=== PATIENT | female | born 1970 | race Caucasian/White ===

== ENCOUNTER → 2021-06-26 15:09 | Outpatient (BNVA) | payer OTHER, SELFPAY | PROVIDERS: PCP Internal Medicine; Visit Provider Internal Medicine ==

== ENCOUNTER → 2021-07-18 12:57 | Outpatient (BNVA) | payer OTHER, SELFPAY | PROVIDERS: PCP Internal Medicine; Visit Provider Nurse Practitioner Family | DX: M47.812 Spondylosis without myelopathy or radiculopathy, cervical region (principal); M43.06 Spondylolysis, lumbar region; E20.9 Hypoparathyroidism, unspecified; M79.18 Myalgia, other site; S30.860A Insect bite (nonvenomous) of lower back and pelvis, initial encounter; W57.XXXA Bitten or stung by nonvenomous insect and other nonvenomous arthropods, initial encounter; Y93.9 Activity, unspecified; Y92.9 Unspecified place or not applicable; Y99.9 Unspecified external cause status | CPT/HCPCS: 99202 ==

== ENCOUNTER 2022-02-15 20:37 | Emergency (ER) | payer OTHER, SELFPAY ==
[2022-02-15 20:40] VITALS: BP 175/110; PULSE 86; RESP 18; TEMP 37.1; O2SAT 100; BMI 32.8
--- NOTE | 2022-02-15 21:14 | ED_ITS ---
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 Patient reports she was at a restaurant eating and there was a sauce on her steak that she believes contains June. Since then she has had this sensation in her throat and down into her upper abdomen. She reports some throat tightness also. Denies skin rash, vomiting, diarrhea, abdominal cramping, cough or difficulty breathing. Patient also reports some hand shaking which she gets when her calcium and magnesium are low. Blood pressure elevated in triage. Asymptomatic. Does not take medication for bp Related Data Home Medications Medication Instructions Recorded Confirmed cholecalciferol (vitamin D3) 250 250 mcg PO DAILY 07/18/21 mcg (10,000 unit) capsule gabapentin 100 mg capsule 200 mg PO TID 07/18/21 hydrocodone 5 mg-acetaminophen 325 1 tab PO Q6H PRN 07/18/21 mg tablet levothyroxine 175 mcg tablet 175 mcg PO DAILY 07/18/21 (Synthroid) magnesium 250 mg tablet 250 mg PO DAILY 07/18/21 metaxalone 400 mg tablet 800 mg PO TID 07/18/21 parathyroid hormone 100 mcg/dose 50 mcg subcut DAILY 07/18/21 subcutaneous cartridge (Natpara) tizanidine 2 mg tablet 2 mg PO Q8H PRN muscle spasm 07/18/21 vitamin B complex 1 cap PO DAILY 07/18/21 vitamin K2 100 mcg capsule 100 mcg PO DAILY 07/18/21 zolmitriptan 5 mg nasal spray 1 spray intranasal Q2H PRN 07/18/21 (Zomig) Previous Rx's Medication Instructions Recorded doxycycline hyclate 100 mg capsule 200 mg PO DAILY tick bite 1 day #2 07/18/21 caps Allergies Allergy/AdvReac Type Severity Reaction Status Date / Time insect venom [INSECT BITES] Allergy Intermediate ITCHING Unverified 01/14/20 17:29 prochlorperazine Allergy Unknown UNKNOWN Unverified 01/14/20 17:29 [From COMPAZINE] topiramate [From TOPAMAX] Allergy Unknown UNKNOWN Unverified 01/14/20 17:29 Review of Systems Review of Systems: Yes all other systems are reviewed and are negative Constitutional: Constitutional: Reports no additional constitutional complaints, Denies body ache(s), Denies chills, Denies fever(s), Denies headache(s) and Denies weakness Eyes: Eyes: Reports no additional eye complaints and Denies change in vision ENT: Reports system reviewed and no additional complaints, except as documented, Denies dizziness, Denies headache(s), Denies nasal congestion, Denies nasal discharge, Denies neck pain and Reports sore throat Cardiovascular: Cardiovascular: Reports no additional cardiovascular complaints, Denies chest pain, Denies leg edema and Denies dyspnea Respiratory: Respiratory: Reports no additional respiratory complaints, Denies cough and Denies dyspnea Gastrointestinal: Gastrointestinal: Reports no additional gastrointestinal complaints, Reports abdominal pain, Denies diarrhea, Denies nausea and Denies vomiting Genitourinary: Genitourinary: Reports no additional female genitourinary complaints and Denies urinary incontinence Musculoskeletal: Musculoskeletal: Reports no additional musculoskeletal complaints, Denies back pain, Denies arthralgias, Denies joint swelling, Denies neck pain, Denies numbness and Denies tingling Integumentary/Breasts: Skin/Breast: Reports system reviewed and no additional complaints, except as docu and Denies rash Neurologic: Reports system reviewed and no additional complaints, except as documented, Denies dizziness, Denies headache(s), Denies numbness, Denies tingling and Denies weakness [facility] Past Medical History Attestation statement: The following information was validated with the patient. Source: old records reviewed and nursing notes reviewed Medical History Abdominal pain, epigastric Genitofemoral neuralgia of right side History of papillary adenocarcinoma of thyroid Hypoparathyroidism Hypothyroidism Incisional hernia Migraine with aura and without status migrainosus Skin laxity Surgical History Gastric bypass status for obesity H/O laparoscopy H/O thyroidectomy H/O: hysterectomy History of History of esophagogastroduodenoscopy (EGD) Status post panniculectomy Family History Family History Mother Celiac disease Hypertension Diabetes Father Hypertension Parkinson disease Social History Social History Alcohol intake: never Patient Tobacco Use Status: Never used Tobacco Advance Directives: No Advance Directives Information Provided: Yes Physical Exam ED Vital Signs: Vital Signs - 24 hr 02/15/22 20:40 02/15/22 21:30 Temperature 98.7 F Pulse Rate 86 Respiratory Rate 18 Blood Pressure 175/110 H 147/93 H Pulse Oximetry 100 Oxygen Delivery Method Room Air BMI result Body Mass Index 32.8 Const General: cooperative, healthy appearing, comfortable and no acute distress Orientation/consciousness: patient oriented x3 Limitations: no limitations HENMT Head: Yes normal to inspection Ears: hearing grossly normal bilaterally Throat: Yes posterior oropharynx normal, Yes tonsils normal and Yes uvula midline Eyes General: appearance normal, both eyes and all related structures Neck Other: no stridor Neck: Yes normal visual inspection and Yes full ROM Chest Chest palpation & inspection: normal inspection of the chest Resp Effort & Inspection: normal respiratory effort Auscultation: clear to auscultation bilaterally Cardio Rate: regular rate Rhythm: regular rhythm Peripheral pulses: Peripheral pulses 2+ throughout GI Inspection: Yes normal to inspection Palpation (GI): Soft to palpation and nontender General: Yes no CVA tenderness Back/Spine/Pelvis Back: no CVA tenderness Thoracic/Lumbar Spine: thoracic and lumbar spine normal to inspection Skin General skin exam: no rashes or lesions noted Neuro General: patient oriented x3 and moves all extremities Cognition (Neuro): normal cognition Gait exam (Neuro): Normal gait present Extrem General: Yes normal to inspection Course Course Course Narrative: Labs are all normal. Patient tells me her throat feels improved. She still does have some slight upper abdominal discomfort but overall is feeling better. Plan for discharge home. Reviewed worrisome signs and symptoms of when to return to the emergency room. Comfortable discharge home. Blood pressure improved without intervention MDM - Allergic Reaction MDM Narrative Medical decision making narrative: 51-year-old female here with complaints sore throat described as burning and tightness and upper abdominal burning after cilantro this afternoon No airway involvement or angioedema Lungs are clear Vitals are stable Took 50mg PO benadryl prior to arrival Will give maalox/lidocaine Patient concerned her calcium/magnesium are low d/t ?stressful event and has underlying hypoparathyroidism. Will check labs including calcium/magnesium. Asymptomatic HTN. Will check manual BP Medical Records Attestation: I reviewed the patient's medical records. Lab Data Attestation: I reviewed the patient's lab results. Result diagrams: 02/15/22 21:19 02/15/22 21:19 Labs: Lab Results 02/15/22 02/15/22 02/15/22 Range/Units 21:19 21:19 21:19 WBC 8.2 (4.8-10.8) X10*3/uL RBC 4.56 (4.20-5.50) X10*6/uL Hgb 14.1 (12.0-16.0) g/dl Hct 42.0 (37.0-47.0) % MCV 92.1 (80.0-98.0) fL MCH 30.9 (27.0-33.0) pg MCHC 33.6 (31.0-35.0) g/dl RDW 11.9 (11.0-16.0) % Plt Count 270 (160-400) X10*3/uL MPV 10.5 (9.4-12.3) fL Absolute Nucleated RBC 0.000 (0.0-0.012) X10*3/uL Nucleated RBC % (auto) 0.0 (0.0-0.2) /100WBC Sodium 141 (135-145) mmol/L Potassium 4.5 (3.3-5.1) mmol/L Chloride 103 (96-108) mmol/L Carbon Dioxide 26 (22-29) mmol/L Anion Gap 17 (12-20) BUN 18 H (9-16) mg/dL Creatinine 0.74 (0.5-1.4) mg/dL Estim Creat Clear Calc 93.3 Estimated GFR > 60 Random Glucose 94 (60-115) mg/dL Calcium 9.4 9.7 (8.4-10.2) mg/dL Magnesium 2.0 (1.6-2.6) mg/dL Total Bilirubin 0.4 (0.0-1.0) mg/dL Direct Bilirubin < 0.2 (0.0-0.5) mg/dL AST 24 (5-31) U/L ALT 23 (0-31) U/L Alkaline Phosphatase 77 (39-117) U/L Total Protein 7.4 (6.5-8.0) g/dL Albumin 4.8 (3.5-5.0) g/dL Discharge Plan Discharge Clinical Impression: Allergic reaction Patient Disposition: Home, Self-Care Instructions: General Allergic Reaction (ED) Additional Instructions: Your calcium is 9.7, magnesium is 2.0, albumin 4.8 you may take Maalox and omeprazole for the next few days Prescriptions: No Action hydrocodone-acetaminophen 5-325 mg tablet 1 tab PO Q6H PRN Natpara 100 mcg/dose cartridge 50 mcg subcut DAILY Rx Instructions: inject into thigh; alternate sites/do not use the same thigh for 2 consecutive days tizanidine 2 mg tablet 2 mg PO Q8H PRN (Reason: muscle spasm) gabapentin 100 mg capsule 200 mg PO TID levothyroxine [Synthroid] 175 mcg tablet 175 mcg PO DAILY magnesium 250 mg tablet 250 mg PO DAILY cholecalciferol (vitamin D3) 250 mcg (10,000 unit) capsule 250 mcg PO DAILY vitamin B complex Capsule 1 cap PO DAILY vitamin K2 100 mcg capsule 100 mcg PO DAILY metaxalone 400 mg tablet 800 mg PO TID zolmitriptan [Zomig] 5 mg spray,non-aerosol 1 spray intranasal Q2H PRN Rx Instructions: administer into one nostril (only); alternate nostrils; do not exceed 10 mg /24 hrs doxycycline hyclate 100 mg capsule 200 mg PO DAILY 1 Days Qty: 2 0RF Rx Instructions: Do not take magnesium while taking this. Referrals: Swati Aquino MD [Primary Care Provider] - 1 week (only as needed) Interventions: ED Discharge Assessment Last Done: 02/15/22 22:52 Discharge Date/Time: 02/15/22 22:54
[2022-02-15 21:25] LABS: Hemoglobin 14.1 g/dl (12.0-16.0); Mean Corpuscular HGB Conc 33.6 g/dl (31.0-35.0); Mean Corpuscular Hemoglobin 30.9 pg (27.0-33.0); Mean Corpuscular Volume 92.1 fL (80.0-98.0); Mean Platelet Volume 10.5 fL (9.4-12.3); Platelet Count 270 X10*3/uL (160-400); Red Blood Count 4.56 X10*6/uL (4.20-5.50); Red Cell Distribution Width 11.9 % (11.0-16.0); White Blood Count 8.2 X10*3/uL (4.8-10.8)
[2022-02-15 21:30] VITALS: BP 147/93
[2022-02-15] MEDS: Magnesium Hydrox/Alum Hydrox 30 ML ORAL.SUSP PO (21:36)
[2022-02-15] MEDS: Lidocaine HCl Viscous 2 % 15 ML SOLUTION MUCOUS MEM (21:36)
[2022-02-15 21:54] LABS: Anion Gap 17 (12-20); Blood Urea Nitrogen 18 mg/dL (9-16); Calcium 9.4 mg/dL (8.4-10.2); Carbon Dioxide 26 mmol/L (22-29); Chloride 103 mmol/L (96-108); Creatinine Clr Calc Pharmacy 93.3; Estimated Glomerular Filt Rate > 60; Glucose Random 94 mg/dL (60-115); Potassium 4.5 mmol/L (3.3-5.1); Sodium 141 mmol/L (135-145)
[2022-02-15 22:01] LABS: Alanine Aminotransferase 23 U/L (0-31); Albumin Level 4.8 g/dL (3.5-5.0); Alkaline Phosphatase 77 U/L (39-117); Aspartate Amino Transferase 24 U/L (5-31); Bilirubin Direct < 0.2 mg/dL (0.0-0.5); Bilirubin Total 0.4 mg/dL (0.0-1.0); Calcium 9.7 mg/dL (8.4-10.2); Total Protein 7.4 g/dL (6.5-8.0)
== END 2022-02-15 22:54 | disposition home or self-care (01) ==
PROVIDERS: Emergency Medicine; Nurse Practitioner Family; Emergency Provider Emergency Medicine; PCP Internal Medicine
DX: L50.0 Allergic urticaria (principal); Z79.899 Other long term (current) drug therapy
CPT/HCPCS: 36415; 80048; 80076; 82310; 83735; 85027; 99282; 99283

== ENCOUNTER 2022-03-16 08:33 | Emergency (ER) | payer OTHER, SELFPAY ==
--- NOTE | ~2022-03-16 | XR_ITS ---
EXAMINATION: XR CHEST CLINICAL INFORMATION: Shortness of breath COMPARISON: 04/12/2019 TECHNIQUE: Frontal view of the chest was obtained. FINDINGS: Normal symmetric lung volumes. No parenchymal consolidation. No pleural effusion. No pneumothorax. Cardiomediastinal silhouette and pulmonary vascularity are within normal limits. No acute osseous abnormalities. XR/XR chest 1V IMPRESSION: Clear lungs
--- NOTE | ~2022-03-16 | CT_ITS ---
EXAMINATION: CT ANGIOGRAM OF THE CHEST WITH CONTRAST (CT PULMONARY ANGIOGRAM FOR PE) CT ABDOMEN/PELVIS WITH CONTRAST CLINICAL INFORMATION: Reason for Exam shortness of breath . 4 days postop status post hysterectomy (resection of the remaining cervix) and bilateral salpingo-oophorectomy. COMPARISON: None TECHNIQUE: Prior to contrast administration, noncontrast localization images were obtained. Subsequently, multidetector volumetric imaging was performed from the thoracic inlet through the pubic symphysis following the administration of 80 mL Omnipaque 350 intravenous contrast. Postcontrast images of the chest were acquired during the pulmonary angiographic phase, while imaging through the abdomen and pelvis was performed during the portal venous phase. No contrast reaction reported Sagittal, coronal, and MIP oblique sagittal reformatted images were obtained on the CT workstation, uploaded to PACS, and reviewed. This CT examination was performed using dose optimization techniques as appropriate, variously including the following: *Automated exposure control *Adjustment of mA and/or kV according to patient size (this includes techniques or standardized protocols for targeted exams where dose is matched to indication/reason for exam; i.e. extremities or head) *Use of iterative reconstruction technique Total exam dose-length product 1033 mGy-cm FINDINGS: QUALITY OF STUDY/CONTRAST BOLUS: Satisfactory. PULMONARY ARTERIES: No central or segmental pulmonary emboli. THORACIC AORTA: No aneurysm or dissection. LUNG: No focal consolidation, nodules or masses. PLEURA: No pleural effusion or pneumothorax. MEDIASTINUM: Mild cardiac megaly. No pericardial effusion. No hilar or mediastinal lymphadenopathy. No evidence of septal bowing or right heart strain. No reflux of contrast into the hepatic veins to suggest elevated right heart pressures. CHEST WALL/AXILLA: No axillary or internal mammary lymphadenopathy. HEPATOBILIARY: Liver normal in size, contour and morphology. No suspicious lesions. No intra or extrahepatic biliary dilation. Cholecystectomy. PANCREAS: Unremarkable. SPLEEN: Unremarkable. ADRENAL GLANDS: Unremarkable. morphology demonstrating symmetric enhancement. No suspicious renal cysts or masses. No hydronephrosis or perinephric abnormality.. GASTROINTESTINAL TRACT: Partha-en-Y gastrojejunostomy. No intestinal obstruction or inflammation. Normal appendix. PELVIC VISCERA: Hysterectomy and bilateral salpingo-oophorectomy. There is a nonspecific more rounded structure in the right perirectal fat measuring 1.5 cm which could represent hemorrhage as well. Trace extraperitoneal gas along the right lateral bladder. LYMPH NODES: No lymphadenopathy. PERITONEUM/BODY WALL: There is presumptive hematoma within the pelvis overlying the vaginal cuff measuring 10.2 x 4.7 x 7.2 cm. Stranding present within the right lower quadrant subcutaneous fat. VASCULAR STRUCTURES: Unremarkable. OSSEOUS STRUCTURES: No acute or suspicious osseous abnormalities. CT/CT angio chest PE protocol IMPRESSION: * No pulmonary embolism. * No acute pulmonary parenchymal abnormalities. * Hysterectomy and bilateral oophorectomy. * There is a 10.2 x 4.7 x 7.2 cm hematoma within the pelvis overlying the vaginal cuff. The acuity of this finding is unclear. Correlate with hemodynamic status with potential reimaging in several hours to ascertain as to whether the hematoma is increased in size, or sooner if the patient is clinically stable. VTE: negative This result was discussed with Marylou Trent NP at 03/16/2022 12:02 PM and it was ascertained that the content and urgency of the report was understood at the time of direct communication.
--- NOTE | 2022-03-16 08:42 | ED_ITS ---
HPI - Dizziness General Chief Complaint: General Medical Stated Complaint: DIZZY Time Seen by Provider: 03/16/22 08:41 Source: patient Mode of arrival: EMS Limitations: no limitations History of Present Illness HPI Narrative: 51-year-old female past medical history of hypoparathyroidism (hormone pump for replacement), hypothyroidism, migraines, s/p gastric bypass, endometriosis s/p supracervical hysterectomy, and recent robotic assisted laparoscopic removal of cervical stump/bilateral salpingo-oophrectomy on 03/12 at [facility]. She presents to the emergency department via EMS with dizziness and feeling the urge to faint x 4 episodes. She states that she was at home, talking to her mother on the phone, when she began to feel lightheaded and faint, she proceeded to sit down with minimal relief of symptoms and called EMS. EMS reports pt suffered 2 withnessed episodes of dizziness/lightheadedness with a noted increase in HR to 160s with each episode. In the ED she endoreses shortness of breath at rest and exertion, palpatations, chest burning and pressure, weakness/fatigue, with associated nausea. Pt reports laporascopic surgery Saturday with Dr Schmidt, at [facility], without known intraoperative issues. She spent Saturday/Saturday resting in bed due to surgical pain (using prescribed [place] every 4-6 hours)with minimal vaginal bleeding noted. She began ambulating more with an increase in bright red vaginal bleeding (spotting per patient). She states she has been using a pantyliner and has not been having a large amount of bleeding and has not soaked through any peripads. She denies any increased abdominal pain, bleeding from laparascopic incisions, heavy vaginal bleeding, vomiting, diarrhea. She was given miralax and colace 03/11 prior to surgery with last bowel movement prior to surgery on 03/11. She denies any fever, chills, headache, numbness or tingling in extremities, or changes in vision. MD elicited complaint: dizziness, lightheadedness and near syncope Pertinent past history: other (lap tarun salpingectomy, oophrectomy and removal of cervix) Onset (ago): hour(s) Timing: sudden onset Severity: severe Description: off-balance and near-syncope Context: other (s/p lap surgery 03/12) History of similar symptoms: No Exacerbating factors: movement/ambulation and change in body position Relieving factors: remaining still and keeping eyes closed Associated symptoms: nausea, chest pain, shortness of breath and palpatations Related Data Home Medications Medication Instructions Recorded Confirmed cholecalciferol (vitamin D3) 250 250 mcg PO DAILY 07/18/21 mcg (10,000 unit) capsule gabapentin 100 mg capsule 200 mg PO TID 07/18/21 hydrocodone 5 mg-acetaminophen 325 1 tab PO Q6H PRN 07/18/21 mg tablet levothyroxine 175 mcg tablet 175 mcg PO DAILY 07/18/21 (Synthroid) magnesium 250 mg tablet 250 mg PO DAILY 07/18/21 metaxalone 400 mg tablet 800 mg PO TID 07/18/21 parathyroid hormone 100 mcg/dose 50 mcg subcut DAILY 07/18/21 subcutaneous cartridge (Natpara) tizanidine 2 mg tablet 2 mg PO Q8H PRN muscle spasm 07/18/21 vitamin B complex 1 cap PO DAILY 07/18/21 vitamin K2 100 mcg capsule 100 mcg PO DAILY 07/18/21 zolmitriptan 5 mg nasal spray 1 spray intranasal Q2H PRN 07/18/21 (Zomig) Previous Rx's Medication Instructions Recorded doxycycline hyclate 100 mg capsule 200 mg PO DAILY tick bite 1 day #2 07/18/21 caps Allergies Allergy/AdvReac Type Severity Reaction Status Date / Time insect venom [INSECT BITES] Allergy Intermediate ITCHING Unverified 01/14/20 17:29 prochlorperazine Allergy Unknown UNKNOWN Unverified 01/14/20 17:29 [From COMPAZINE] topiramate [From TOPAMAX] Allergy Unknown UNKNOWN Unverified 01/14/20 17:29 Review of Systems Review of Systems: Yes all other systems are reviewed and are negative Constitutional: Constitutional: Reports no additional constitutional complaints, Denies chills, Reports fatigue, Denies fever(s), Denies headache(s), Reports lethargy and Reports weakness Eyes: Eyes: Reports no additional eye complaints, Denies change in vision, Denies diplopia and Denies loss of vision ENT: Reports system reviewed and no additional complaints, except as documented, Reports Normal hearing present, Reports dizziness and Denies headache(s) Cardiovascular: Cardiovascular: Reports no additional cardiovascular complaints, Reports chest pain, Denies Loss of Consciousness, Reports dyspnea, Reports dyspnea on exertion and Reports orthopnea Respiratory: Respiratory: Reports no additional respiratory complaints, Denies pain on inspiration, Reports dyspnea and Reports dyspnea on exertion Gastrointestinal: Gastrointestinal: Reports abdominal pain (s/p lap surgery), Reports bloating, Denies diarrhea, Reports nausea and Denies vomiting Genitourinary: Genitourinary: Denies hematuria and Reports other (vaginal bleeding 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) Musculoskeletal: Musculoskeletal: Denies abnormal gait, Denies numbness and Denies tingling Integumentary/Breasts: Skin/Breast: Reports system reviewed and no additional complaints, except as docu and Reports other (bruising at surgical lap sites) Neurologic: Reports Normal hearing present, Denies abnormal gait, Reports dizziness, Denies headache(s), Denies loss of vision, Denies numbness, Denies tingling and Reports weakness Psychiatric: Psychiatric: Reports no additional psychiatric complaints Endocrine: Endocrine: Reports fatigue PMFSH Past Medical History Attestation statement: The following information was validated with the patient. Source: old records reviewed Medical History Abdominal pain, epigastric Genitofemoral neuralgia of right side History of papillary adenocarcinoma of thyroid Hypoparathyroidism Hypothyroidism Incisional hernia Migraine with aura and without status migrainosus Skin laxity Surgical History Gastric bypass status for obesity H/O laparoscopy H/O thyroidectomy H/O: hysterectomy History of History of esophagogastroduodenoscopy (EGD) Status post panniculectomy Family History Family History Mother Celiac disease Hypertension Diabetes Father Hypertension Parkinson disease Social History Social History Alcohol intake: never Patient Tobacco Use Status: Never used Tobacco Physical Exam Vital Signs: Vital Signs: Last Vital Signs Temp 98.5 F 03/16/22 12:05 Pulse 81 03/16/22 17:09 Resp 14 03/16/22 12:05 BP 122/85 03/16/22 17:09 Pulse Ox 99 03/16/22 12:05 O2 Del Method 03/16/22 12:05 BMI result Body Mass Index 34.3 Const: General: cooperative, alert and awake Nutritional Appearance: well nourished Orientation/consciousness: patient oriented x3 Limitations: no limitations HEENT: Head: Yes normal to inspection and Yes atraumatic Ears: hearing grossly normal bilaterally and external ears normal General nose exam: Normal external nose present Face and sinus: Yes normal facial exam and Yes face symmetric Eyes: General: appearance normal, both eyes and all related structures Visual Chavarria: normal visual chavarria by confrontation Alignment and Position: alignment normal Periorbital: periorbital findings normal Eyelids: Yes eyelids normal Conjunctivae: conjunctivae normal Sclerae: sclerae normal Pupils: Equal, round and reactive pupils present EOM: EOMs intact bilaterally Neck: Neck: Yes normal visual inspection and Yes full ROM Chest: Chest palpation & inspection: normal inspection of the chest Resp: Effort & Inspection: normal respiratory effort, able to speak in complete sentences, labored and symmetric chest movement Auscultation: clear to auscultation bilaterally Cardio: Rate: regular rate Rhythm: regular rhythm Peripheral pulses: Peripheral pulses 2+ throughout GI: Inspection: Yes normal to inspection, Yes distended, Yes obesity and Yes other (lap sites x 4 covered with steristrips, no active bleeding) Palpation (GI): Firmness to palpation present (GI) in the RLQ and in the RUQ and Tenderness to palpation present (GI) Auscultation: normal bowel sounds : General: Yes no CVA tenderness Back/Spine/Pelvis: Back: no CVA tenderness Cervical Spine: normal cervical lordosis and cervical ROM normal Thoracic/Lumbar Spine: thoracic and lumbar spine normal to inspection Skin: General skin exam: no rashes or lesions noted and ecchymosis (yellow/green color. Noted at RLQ lap site extending toward umbilicus) Trauma: other (s/p lap coal screener surgery) Neuro: General: patient oriented x3, moves all extremities and Unable to assess gait Cranial nerves: Yes Equal, round and reactive pupils present and Yes Normal hearing present Cognition (Neuro): normal cognition Gait exam (Neuro): Unable to assess gait Extrem: General: Yes normal to inspection, Yes full ROM, Yes capillary refill normal and Yes no calf tenderness Psych: Appearance: grossly normal Mental Status: mental status grossly normal Speech and movement: Normal speech and movement present and Clear speech present Affect: normal affect Attitude: cooperative Thought process: Normal thought process present Thought content: Normal thought content present Insight: Good insight present (Psych) Judgement: Good judgement present (Psych) Course Course Course Narrative: Dr Schmidt contacted regarding CT abdomen results and radiologist recommendations: There is a 10.2 x 4.7 x 7.2 cm hematoma within the pelvis overlying the vaginal cuff. The acuity of this finding is unclear. Correlate with hemodynamic status with potential reimaging in several hours to ascertain as to whether the hematoma is increased in size, or sooner if the patient is clinically stable. MD recommends repeat CBC and contacting photocopying equipment repairer provider vocational rehabilitation supervisor for additional coal screener assessment. Spoke with Dr Alfonso regarding pt per Dr Schmidt's request. Dr Alfonso at bedside to assess pt. Plan to transfer to [facility] for further observation and management by Dr Schmidt and her team due to complex case and post op complications. Dr Schmidt notified of recommendation to transfer. Pt to be transferred as direct admission to [facility]. Accepted by Dr Shireen Saul Medications Administered Discontinued Medications Generic Name Dose Route Start Last Admin Trade Name Freq PRN Reason Stop Dose Admin Hydrocodone Bitart/Acetaminophen 1 tab 03/16/22 12:32 03/16/22 13:19 Hydrocodone Bit/Acetam 5/325 Tablet PO 03/16/22 12:33 1 tab ONCE ONE Administration Hydrocodone Bitart/Acetaminophen 1 tab 03/16/22 18:30 03/16/22 18:40 Hydrocodone Bit/Acetam 5/325 Tablet PO 03/16/22 18:31 1 tab ONCE ONE Administration Sodium Chloride 1,000 mls @ 999 mls/hr 03/16/22 09:00 03/16/22 10:13 Ns IV 03/16/22 10:00 Infused .Q1H1M ADDI Infusion Sodium Chloride 1,000 mls @ 999 mls/hr 03/16/22 11:15 03/16/22 12:40 Ns IV 03/16/22 12:15 Infused .Q1H1M ADDI Infusion Iohexol 85 ml 03/16/22 11:14 03/16/22 11:15 Iohexol 350 Mg/Ml 100 Ml Infus..Btl IV 03/16/22 11:15 85 ml ONCE ONE Administration Ondansetron HCl 4 mg 03/16/22 09:15 03/16/22 09:20 Ondansetron Hcl 4 Mg/2 Ml Vial IVPUSH 03/16/22 09:16 4 mg ONCE ONE Administration MDM - Dizziness MDM Narrative Medical decision making narrative: 51 yo F with robot assisted laparoscopic removal of cervical stump, bilateral salpingo-oophrectomy done on Saturday, 03/12, at [facility] with Dr Schmidt, presents to the ED with pre-syncope with associated nausea, chest pain/burning, and shortness of breath. Lab work significant slight decrease in H/H most likely 2' to surgical EBL. D-dimer elevated at 738. EKG NSR without changes from last Follow up CTA chest negative for PE. CT abdomen/pelvis sign ificant for a 10.2 x 4.7 x 7.2 cm hematoma within the pelvis overlying the vaginal cuff. Pt's surgeon Dr Schmidt notified and in-house Dr Alfonso from [employer] contacted at surgeon's request to assess pt. Physical findings and test results explained to patient and spouse with no unanswered questions at this time. Repeat H/H 9.9/30.1. Pt to be transferred to [facility] at recommendation of Dr Alfonso and Dr Schmidt. Plan discussed and agreed to by patient and spouse. Transfer line contacted, pt accepted by Dr Shireen Saul as a direct admission, and pt to be transferred via ambulance. Medical Records Attestation: I reviewed the patient's medical records. Lab Data Attestation: I reviewed the patient's lab results. Result diagrams: 03/16/22 17:37 03/16/22 09:14 Labs: Lab Results 03/16/22 03/16/22 03/16/22 Range/Units 09:14 09:14 09:14 WBC 7.6 (4.8-10.8) X10*3/uL RBC 3.62 L D (4.20-5.50) X10*6/uL Hgb 11.3 L (12.0-16.0) g/dl Hct 33.5 L D (37.0-47.0) % MCV 92.5 (80.0-98.0) fL MCH 31.2 (27.0-33.0) pg MCHC 33.7 (31.0-35.0) g/dl RDW 11.9 (11.0-16.0) % Plt Count 272 (160-400) X10*3/uL MPV 10.3 (9.4-12.3) fL Immature Gran % (Auto) 0.3 (0.0-0.4) % Neut % (Auto) 72.0 (45-73) % Lymph % (Auto) 15.7 L (20-40) % [place] % (Auto) 8.7 (2-11) % Eos % (Auto) 2.8 (0-4) % Baso % (Auto) 0.5 (0-2) % Lymph # (Auto) 1.2 (1.2-4.9) X10*3/uL [place] # (Auto) 0.7 (0.1-1.2) X10*3/uL Eos # (Auto) 0.2 (0.0-0.4) X10*3/uL Baso # (Auto) 0.0 (0.0-0.2) X10*3/uL Abs Immat Gran (auto) 0.02 (0.00-0.03) X10*3/uL Absolute Neuts (auto) 5.5 (2.0-8.3) x10*3/uL Absolute Nucleated RBC 0.000 (0.0-0.012) X10*3/uL Nucleated RBC % (auto) 0.0 (0.0-0.2) /100WBC D-Dimer High Sensitivty 738 NG/ML Sodium 144 (135-145) mmol/L Potassium 4.1 (3.3-5.1) mmol/L Chloride 103 (96-108) mmol/L Carbon Dioxide 28 (22-29) mmol/L Anion Gap 17 (12-20) BUN 10 (9-16) mg/dL Creatinine 0.68 (0.5-1.4) mg/dL Estim Creat Clear Calc 104.1 Estimated GFR > 60 Random Glucose 103 (60-115) mg/dL Calcium 10.0 (8.4-10.2) mg/dL Total Bilirubin 1.0 (0.0-1.0) mg/dL AST 17 (5-31) U/L ALT 15 (0-31) U/L Alkaline Phosphatase 72 (39-117) U/L Total Protein 6.7 (6.5-8.0) g/dL Albumin 4.3 (3.5-5.0) g/dL COVID-19 ([facility]) (Negative) COVID-19 Clin Com 03/16/22 03/16/22 03/16/22 Range/Units 14:17 16:35 17:37 WBC 6.6 (4.8-10.8) X10*3/uL RBC 3.23 L (4.20-5.50) X10*6/uL Hgb 9.9 L 10.1 L (12.0-16.0) g/dl Hct 30.1 L 30.6 L (37.0-47.0) % MCV 93.2 (80.0-98.0) fL MCH 30.7 (27.0-33.0) pg MCHC 32.9 (31.0-35.0) g/dl RDW 12.0 (11.0-16.0) % Plt Count 257 (160-400) X10*3/uL MPV 10.4 (9.4-12.3) fL Immature Gran % (Auto) 0.3 (0.0-0.4) % Neut % (Auto) 73.6 H (45-73) % Lymph % (Auto) 16.0 L (20-40) % [place] % (Auto) 8.0 (2-11) % Eos % (Auto) 1.5 (0-4) % Baso % (Auto) 0.6 (0-2) % Lymph # (Auto) 1.1 L (1.2-4.9) X10*3/uL [place] # (Auto) 0.5 (0.1-1.2) X10*3/uL Eos # (Auto) 0.1 (0.0-0.4) X10*3/uL Baso # (Auto) 0.0 (0.0-0.2) X10*3/uL Abs Immat Gran (auto) 0.02 (0.00-0.03) X10*3/uL Absolute Neuts (auto) 4.9 (2.0-8.3) x10*3/uL Absolute Nucleated RBC 0.000 (0.0-0.012) X10*3/uL Nucleated RBC % (auto) 0.0 (0.0-0.2) /100WBC D-Dimer High Sensitivty NG/ML Sodium (135-145) mmol/L Potassium (3.3-5.1) mmol/L Chloride (96-108) mmol/L Carbon Dioxide (22-29) mmol/L Anion Gap (12-20) BUN (9-16) mg/dL Creatinine (0.5-1.4) mg/dL Estim Creat Clear Calc Estimated GFR Random Glucose (60-115) mg/dL Calcium (8.4-10.2) mg/dL Total Bilirubin (0.0-1.0) mg/dL AST (5-31) U/L ALT (0-31) U/L Alkaline Phosphatase (39-117) U/L Total Protein (6.5-8.0) g/dL Albumin (3.5-5.0) g/dL COVID-19 ([facility]) Negative (Negative) COVID-19 Clin Com See Note Imaging Data Chest x-ray: Attestation: I personally reviewed and interpreted this imaging study as follows: My impression: Clear lung chavarria Radiologist's impression: EXAMINATION: XR CHEST CLINICAL INFORMATION: Shortness of breath COMPARISON: 04/12/2019 TECHNIQUE: Frontal view of the chest was obtained. FINDINGS: Normal symmetric lung volumes. No parenchymal consolidation. No pleural effusion. No pneumothorax.? Cardiomediastinal silhouette and pulmonary vascularity are within normal limits. No acute osseous abnormalities. XR/XR chest 1V IMPRESSION: Clear lungs Dictated By: Marino Cochran MD Signed By: <Electronically signed by Marino Cochran MD in OV> 03/16/22949 DD/ 1 TD/TT:? [employer] Operator: DB CTA chest: Attestation: I personally reviewed and interpreted this imaging study as follows: My impression: No acute lung pathology noted, no PE. Hematoma noted above vaginal cuff, within pelvis Radiologist's impression: EXAMINATION: CT ANGIOGRAM OF THE CHEST WITH CONTRAST (CT PULMONARY ANGIOGRAM FOR PE) CT ABDOMEN/PELVIS WITH CONTRAST CLINICAL INFORMATION: Reason for Exam shortness of breath . 4 days postop status post hysterectomy (resection of the remaining cervix) and bilateral salpingo-oophorectomy. COMPARISON: None? TECHNIQUE: Prior to contrast administration, noncontrast localization images were obtained. ? Subsequently, multidetector volumetric imaging was performed from the thoracic inlet through the pubic symphysis following the administration of 80 mL Omnipaque 350 intravenous contrast. Postcontrast images of the chest were acquired during the pulmonary angiographic phase, while imaging through the abdomen and pelvis was performed during the portal venous phase. No contrast reaction reported Sagittal, coronal, and MIP oblique sagittal reformatted images were obtained on the CT workstation, uploaded to PACS, and reviewed. This CT examination was performed using dose optimization techniques as appropriate, variously including the following: *Automated exposure control *Adjustment of mA and/or kV according to patient size (this includes techniques or standardized protocols for targeted exams where dose is matched to indication/reason for exam; i.e. extremities or head) *Use of iterative reconstruction technique Total exam dose-length product 1033 mGy-cm FINDINGS: QUALITY OF STUDY/CONTRAST BOLUS: Satisfactory. PULMONARY ARTERIES: No central or segmental pulmonary emboli.? THORACIC AORTA: No aneurysm or dissection. LUNG: No focal consolidation, nodules or masses. PLEURA: No pleural effusion or pneumothorax. MEDIASTINUM: Mild cardiac megaly. No pericardial effusion.? No hilar or mediastinal lymphadenopathy.? No evidence of septal bowing or right heart strain. No reflux of contrast into the hepatic veins to suggest elevated right heart pressures. CHEST WALL/AXILLA: No axillary or internal mammary lymphadenopathy. HEPATOBILIARY: Liver normal in size, contour and morphology. No suspicious lesions. No intra or extrahepatic biliary dilation. Cholecystectomy. PANCREAS: Unremarkable. SPLEEN: Unremarkable. ADRENAL GLANDS: Unremarkable. morphology demonstrating symmetric enhancement. No suspicious renal cysts or masses. No hydronephrosis or perinephric abnormality.. GASTROINTESTINAL TRACT: Partha-en-Y gastrojejunostomy. No intestinal obstruction or inflammation. Normal appendix. PELVIC VISCERA: Hysterectomy and bilateral salpingo-oophorectomy. There is a nonspecific more rounded structure in the right perirectal fat measuring 1.5 cm which could represent hemorrhage as well. Trace extraperitoneal gas along the right lateral bladder. LYMPH NODES: No lymphadenopathy. PERITONEUM/BODY WALL: There is presumptive hematoma within the pelvis overlying the vaginal cuff measuring 10.2 x 4.7 x 7.2 cm. Stranding present within the right lower quadrant subcutaneous fat. VASCULAR STRUCTURES: Unremarkable. OSSEOUS STRUCTURES: No acute or suspicious osseous abnormalities. ? ? CT/CT angio chest PE protocol IMPRESSION: *? No pulmonary embolism. *? No acute pulmonary parenchymal abnormalities. *? Hysterectomy and bilateral oophorectomy. *? There is a 10.2 x 4.7 x 7.2 cm hematoma within the pelvis overlying the vaginal cuff. The acuity of this finding is unclear. Correlate with hemodynamic status with potential reimaging in several hours to ascertain as to whether the hematoma is increased in size, or sooner if the patient is clinically stable. ? VTE: negative ? This result was discussed with Marylou Trent [employer]DRO[employer] P[employer]IC CARD GRADER at 03/16/2022 12:02 PM and it was ascertained that the content and urgency of the report was understood at the time of direct communication. Dictated By: Marino Cochran MD Signed By: <Electronically signed by Marino Cochran MD in OV> 03/16/22 1205 DD/ 1100 TD/TT:? [employer] Operator: ECG Data Attestation: I personally reviewed and interpreted this ECG as follows: ECG interpretation date: 03/16/22 Interpretation: Test Reason : SHORTNESS OF BREATH Blood Pressure : / mmHG Vent. Rate : 077 BPM ? ? Atrial Rate : 077 BPM ?? P-R Int : 138 ms? QRS Dur : 076 ms ? ? QT Int : 406 ms ? ? ? P-R-T Axes : 024 011 020 degrees ?? QTc Int : 459 ms ? Normal sinus rhythm Minimal voltage criteria for LVH, may be normal variant ( R in aVL ) Borderline ECG When compared with ECG of 12-APR-2019 19:59, No significant change was found ? Referred By: Marylou Trent ? Electronically Signed By:OLVIN STANLEY MD Dictated By: Dontae Stanley MD Signed By: <Electronically signed by Dontae Stanley MD in OV> 03/16/22 1256 DD/ 0925 TD/TT: 03/16/22 1256 Metal [employer]ing [employer] Operator: Discharge Plan Discharge Clinical Impression: Hematoma, Post-op bleeding Patient Disposition: Xfer [facility] Transfer Details: [facility] Prescriptions: No Action hydrocodone-acetaminophen 5-325 mg tablet 1 tab PO Q6H PRN Natpara 100 mcg/dose cartridge 50 mcg subcut DAILY Rx Instructions: inject into thigh; alternate sites/do not use the same thigh for 2 consecutive days tizanidine 2 mg tablet 2 mg PO Q8H PRN (Reason: muscle spasm) gabapentin 100 mg capsule 200 mg PO TID levothyroxine [Synthroid] 175 mcg tablet 175 mcg PO DAILY magnesium 250 mg tablet 250 mg PO DAILY cholecalciferol (vitamin D3) 250 mcg (10,000 unit) capsule 250 mcg PO DAILY vitamin B complex Capsule 1 cap PO DAILY vitamin K2 100 mcg capsule 100 mcg PO DAILY metaxalone 400 mg tablet 800 mg PO TID zolmitriptan [Zomig] 5 mg spray,non-aerosol 1 spray intranasal Q2H PRN Rx Instructions: administer into one nostril (only); alternate nostrils; do not exceed 10 mg /24 hrs doxycycline hyclate 100 mg capsule 200 mg PO DAILY 1 Days Qty: 2 0RF Rx Instructions: Do not take magnesium while taking this. Interventions: Acute Care Transfer Worksheet (ED) Last Done: 03/16/22 20:14 Discharge Date/Time: 03/16/22 19:45
[2022-03-16 08:44] VITALS: BP 149/87; PULSE 85; RESP 14; TEMP 36.7; O2SAT 98; BMI 34.3
--- NOTE | 2022-03-16 08:50 | ECG_ITS ---
Test Reason : SHORTNESS OF BREATH Blood Pressure : / mmHG Vent. Rate : 077 BPM Atrial Rate : 077 BPM P-R Int : 138 ms QRS Dur : 076 ms QT Int : 406 ms P-R-T Axes : 024 011 020 degrees QTc Int : 459 ms Normal sinus rhythm Minimal voltage criteria for LVH, may be normal variant ( R in aVL ) Borderline ECG When compared with ECG of 12-APR-2019 19:59, No significant change was found Referred By: Marylou Trent Electronically Signed By:OLVIN STANLEY MD
[2022-03-16] MEDS: 0.9 % Sodium Chloride 1,000 ML 999 ML IV ×2 (09:12→11:35)
[2022-03-16 09:18] LABS: MANUAL DIFF FLAG NO
[2022-03-16 09:20] LABS: Basophils Percent Auto 0.5 % (0-2); Eosinophils Absolute Auto 0.2 X10*3/uL (0.0-0.4); Eosinophils Percent Auto 2.8 % (0-4); Hematocrit 33.5 % (37.0-47.0); Hemoglobin 11.3 g/dl (12.0-16.0); Imm Gran Abs Auto 0.02 X10*3/uL (0.00-0.03); Imm Gran Pct Auto 0.3 % (0.0-0.4); Lymphocytes Absolute Auto 1.2 X10*3/uL (1.2-4.9); Lymphocytes Percent Auto 15.7 % (20-40); Mean Corpuscular HGB Conc 33.7 g/dl (31.0-35.0); Mean Corpuscular Hemoglobin 31.2 pg (27.0-33.0); Mean Corpuscular Volume 92.5 fL (80.0-98.0); Mean Platelet Volume 10.3 fL (9.4-12.3); Monocytes Absolute Auto 0.7 X10*3/uL (0.1-1.2); Monocytes Percent Auto 8.7 % (2-11); Neutrophils Absolute Auto 5.5 x10*3/uL (2.0-8.3); Platelet Count 272 X10*3/uL (160-400); Red Blood Count 3.62 X10*6/uL (4.20-5.50); Red Cell Distribution Width 11.9 % (11.0-16.0); White Blood Count 7.6 X10*3/uL (4.8-10.8)
[2022-03-16] MEDS: ondansetron HCL 4 MG/2 ML VIAL IVPUSH (09:20)
[2022-03-16 09:27] LABS: D Dimer High Sensitivity 738 NG/ML
[2022-03-16 09:54] LABS: Alanine Aminotransferase 15 U/L (0-31); Alkaline Phosphatase 72 U/L (39-117); Anion Gap 17 (12-20); Aspartate Amino Transferase 17 U/L (5-31); Blood Urea Nitrogen 10 mg/dL (9-16); Carbon Dioxide 28 mmol/L (22-29); Chloride 103 mmol/L (96-108); Creatinine Clr Calc Pharmacy 104.1; Estimated Glomerular Filt Rate > 60; Glucose Random 103 mg/dL (60-115); Potassium 4.1 mmol/L (3.3-5.1); Sodium 144 mmol/L (135-145); Total Protein 6.7 g/dL (6.5-8.0)
--- NOTE | 2022-03-16 10:31 | PC.NURSE ---
attempted iv access for cta- pa to attempt access
[2022-03-16 10:35] VITALS: BP 138/79; PULSE 73; RESP 14; TEMP 36.9; O2SAT 99
[2022-03-16 10:58] LABS: Albumin Level 4.3 g/dL (3.5-5.0)
[2022-03-16] MEDS: iohexoL 350 MG/ML 100 ML INFUS..BTL 85 ML IV (11:15)
[2022-03-16 12:05] VITALS: BP 129/80; PULSE 78; RESP 14; TEMP 36.9; O2SAT 99
[2022-03-16] MEDS: HYDROcodone Bit/Acetam 5/325 TABLET 1 TAB PO ×2 (13:19→18:40)
--- NOTE | 2022-03-16 13:53 | PC.NURSE ---
plan to transfer to [facility] at this time
[2022-03-16 14:21] LABS: MANUAL DIFF FLAG NO
[2022-03-16 14:25] LABS: Basophils Percent Auto 0.6 % (0-2); Eosinophils Absolute Auto 0.1 X10*3/uL (0.0-0.4); Eosinophils Percent Auto 1.5 % (0-4); Hematocrit 30.1 % (37.0-47.0); Hemoglobin 9.9 g/dl (12.0-16.0); Imm Gran Abs Auto 0.02 X10*3/uL (0.00-0.03); Imm Gran Pct Auto 0.3 % (0.0-0.4); Lymphocytes Absolute Auto 1.1 X10*3/uL (1.2-4.9); Mean Corpuscular HGB Conc 32.9 g/dl (31.0-35.0); Mean Corpuscular Hemoglobin 30.7 pg (27.0-33.0); Mean Corpuscular Volume 93.2 fL (80.0-98.0); Mean Platelet Volume 10.4 fL (9.4-12.3); Monocytes Absolute Auto 0.5 X10*3/uL (0.1-1.2); Neutrophils Absolute Auto 4.9 x10*3/uL (2.0-8.3); Neutrophils Percent Auto 73.6 % (45-73); Platelet Count 257 X10*3/uL (160-400); Red Blood Count 3.23 X10*6/uL (4.20-5.50); White Blood Count 6.6 X10*3/uL (4.8-10.8)
--- NOTE | 2022-03-16 14:38 | P.CONOB_ITS ---
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 The patient is postop day 5 from robotic assisted laparoscopic cervical stump removal, excision of endometrioticl implants with bilateral salpingo-oophorectomy. The patient has a complex surgical history with 2 previous , history of endometriosis was referred from General bulb inspector at [facility] to Dr. Schmidt at [facility] for surgical treatment of endometriosis. The patient did well postoperatively but was complaining of persistent pelvic pain over the last 4 days morning, she woke up this morning and started having dizziness and almost passed out, so an ambulance was called , and the patient was brought to the emergency room. The patient received 2 L fluid, the workup in the emergency room include the following it set chest x-ray any CTA was negative, CT of abdomen pelvis showed a 10.2 cm vaginal cuff hematoma. 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 Hypoparathyroidism Hypothyroidism Incisional hernia Migraine with aura and without status migrainosus Skin laxity Family History Family History Mother Celiac disease Hypertension Diabetes Father Hypertension Parkinson disease Surgical History Surgical History Gastric bypass status for obesity H/O laparoscopy H/O thyroidectomy H/O: hysterectomy History of History of esophagogastroduodenoscopy (EGD) Status post panniculectomy Social History Social History Alcohol intake: never Patient Tobacco Use Status: Never used Tobacco Advance Directives: Yes Advance Directives Information Provided: Yes Advance Directives on File: No Meds Allergies Allergy/AdvReac Type Severity Reaction Status Date / Time insect venom [INSECT BITES] Allergy Intermediate ITCHING Unverified 01/14/20 17:29 prochlorperazine Allergy Unknown UNKNOWN Unverified 01/14/20 17:29 [From COMPAZINE] topiramate [From TOPAMAX] Allergy Unknown UNKNOWN Unverified 01/14/20 17:29 Home Medications Medication Instructions Recorded Confirmed Last Taken Type cholecalciferol (vitamin D3) 250 250 mcg PO DAILY 07/18/21 Unknown History mcg (10,000 unit) capsule gabapentin 100 mg capsule 200 mg PO TID 07/18/21 Unknown History hydrocodone 5 mg-acetaminophen 325 1 tab PO Q6H PRN 07/18/21 Unknown History mg tablet levothyroxine 175 mcg tablet 175 mcg PO DAILY 07/18/21 Unknown History (Synthroid) magnesium 250 mg tablet 250 mg PO DAILY 07/18/21 Unknown History metaxalone 400 mg tablet 800 mg PO TID 07/18/21 Unknown History parathyroid hormone 100 mcg/dose 50 mcg subcut DAILY 07/18/21 Unknown History subcutaneous cartridge (Natpara) tizanidine 2 mg tablet 2 mg PO Q8H PRN muscle spasm 07/18/21 Unknown History vitamin B complex 1 cap PO DAILY 07/18/21 Unknown History vitamin K2 100 mcg capsule 100 mcg PO DAILY 07/18/21 Unknown History zolmitriptan 5 mg nasal spray 1 spray intranasal Q2H PRN 07/18/21 Unknown History (Zomig) 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 Physical Exam Vitals Vital signs: Temp Pulse Resp BP Pulse Ox O2 Del Method 98.5 F 78 14 129/80 99 03/16/22 12:05 03/16/22 12:05 03/16/22 12:05 03/16/22 12:05 03/16/22 12:05 03/16/22 12:05 BMI result Body Mass Index 34.3 Abdomen Auscultation/Inspection/Palpation: Normal bowel sounds, Rigid (Mildly rigid) and Tenderness (Bilateral lower quadrant) 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 MILL OPERATOR - Results Labs CBC & Chem 7: 03/16/22 14:17 03/16/22 09:14 Labs: Short CBC 03/16/22 03/16/22 Range/Units 09:14 14:17 WBC 7.6 6.6 (4.8-10.8) X10*3/uL Hgb 11.3 L 9.9 L (12.0-16.0) g/dl Hct 33.5 L D 30.1 L (37.0-47.0) % Plt Count 272 257 (160-400) X10*3/uL BMP 03/16/22 09:14 Sodium 144 Potassium 4.1 Chloride 103 Carbon Dioxide 28 BUN 10 Creatinine 0.68 Calcium 10.0 Liver Function 03/16/22 Range/Units 09:14 Total Bilirubin 1.0 (0.0-1.0) mg/dL AST 17 (5-31) U/L ALT 15 (0-31) U/L Alkaline Phosphatase 72 (39-117) U/L Albumin 4.3 (3.5-5.0) g/dL Imaging CT scan - chest: Radiologist's impression: ITS Impressions Chest X-Ray 03/16/22 09:22 IMPRESSION: Clear lungs Abdomen/Pelvis CT 03/16/22 11:00 IMPRESSION: * No pulmonary embolism. * No acute pulmonary parenchymal abnormalities. * Hysterectomy and bilateral oophorectomy. * There is a 10.2 x 4.7 x 7.2 cm hematoma within the pelvis overlying the vaginal cuff. The acuity of this finding is unclear. Correlate with hemodynamic status with potential reimaging in several hours to ascertain as to whether the hematoma is increased in size, or sooner if the patient is clinically stable. VTE: negative This result was discussed with Marylou Trent NP at 03/16/2022 12:02 PM and it was ascertained that the content and urgency of the report was understood at the time of direct communication. Chest CTA 03/16/22 11:00 IMPRESSION: * No pulmonary embolism. * No acute pulmonary parenchymal abnormalities. * Hysterectomy and bilateral oophorectomy. * There is a 10.2 x 4.7 x 7.2 cm hematoma within the pelvis overlying the vaginal cuff. The acuity of this finding is unclear. Correlate with hemodynamic status with potential reimaging in several hours to ascertain as to whether the hematoma is increased in size, or sooner if the patient is clinically stable. VTE: negative This result was discussed with Marylou Trent NP at 03/16/2022 12:02 PM and it was ascertained that the content and urgency of the report was understood at the time of direct communication. CT scan - pelvis: Radiologist's impression: ITS Impressions Chest X-Ray 03/16/22 09:22 IMPRESSION: Clear lungs Abdomen/Pelvis CT 03/16/22 11:00 IMPRESSION: * No pulmonary embolism. * No acute pulmonary parenchymal abnormalities. * Hysterectomy and bilateral oophorectomy. * There is a 10.2 x 4.7 x 7.2 cm hematoma within the pelvis overlying the vaginal cuff. The acuity of this finding is unclear. Correlate with hemodynamic status with potential reimaging in several hours to ascertain as to whether the hematoma is increased in size, or sooner if the patient is clinically stable. VTE: negative This result was discussed with Marylou Trent NP at 03/16/2022 12:02 PM and it was ascertained that the content and urgency of the report was understood at the time of direct communication. Chest CTA 03/16/22 11:00 IMPRESSION: * No pulmonary embolism. * No acute pulmonary parenchymal abnormalities. * Hysterectomy and bilateral oophorectomy. * There is a 10.2 x 4.7 x 7.2 cm hematoma within the pelvis overlying the vaginal cuff. The acuity of this finding is unclear. Correlate with hemodynamic status with potential reimaging in several hours to ascertain as to whether the hematoma is increased in size, or sooner if the patient is clinically stable. VTE: negative This result was discussed with Marylou Trent DOPE DRY HOUSE OPERATOR at 03/16/2022 12:02 PM and it was ascertained that the content and urgency of the report was understood at the time of direct communication. Assessment and Plan (1) Hematoma: Status: Acute Recommended to Marylou Trent NP the following: The patient needs admission for observation with serial H&H, if there is any evidence of continuous drop in the H&H, the patient might need surgical intervention to control the bleeding from the vaginal cuff. Since the patient has a complex surgical history and the surgery required the skills of a gynecologic oncologist and was performed by Dr. Schmidt at [facility], recommended transfer the patient to [facility] since Gyne Onc service is not available at [facility] in case the patient needs any urgent surgical intervention to control of her post operative vaginal cuff bleeding. Explained the clinical situation the patient, all questions answered, the patient verbalized understanding and agreed with the plan.
--- NOTE | 2022-03-16 14:49 | PC.NURSE ---
@ 0112 CALL PLACED TO [facility] TX LINE FOR ER TO ER TRANSFER @ [employer] OPERATOR CM REQUEST JOSELUIS SALVADOR TAKES PT INFO AND CALL BACK NUMBER THEN REQUESTS TO SPEAK WITH CM PABON TAKES OVER CALL RIGHT AWAY
--- NOTE | 2022-03-16 15:34 | PC.NURSE ---
@ 4131 CALL PLACED TO [facility]NELLY LINE TO CHECK STATUS OF THIS TRANSFER JOSELUIS ANSWERS AND ASURES ME SHE WILL CALL US BACK WITH ACCEPTING MD WHEN AVAILABLE CM LEE
--- NOTE | 2022-03-16 16:44 | PC.NURSE ---
@7181 CALL RECEIVED FROM [facility] JOSELUIS WITH ROOM ASSIGNMENT AND ACCEPTING MD ACCEPTING MD: DR SHARYN SIMS RN TO RN: [phone] ROOM 214
[2022-03-16 16:54] LABS: COVID-19 Test Negative (Negative)
[2022-03-16 17:09] VITALS: BP 122/85; PULSE 81
--- NOTE | 2022-03-16 17:12 | PC.NURSE ---
attempt to call report. rn to call back
--- NOTE | 2022-03-16 17:33 | PC.NURSE ---
report given to leonie elam at [place] [id number]
--- NOTE | 2022-03-16 17:33 | PC.NURSE ---
@ 8202 [facility] CALLED FOR BLS TRANSPORT TO [facility] ROOM 214 ANDRZEJ(?) TAKES PT INFO THEN SAYS SHE WILL CALL BACK WITH ETA
--- NOTE | 2022-03-16 17:41 | PC.NURSE ---
@ 6158 [facility] CALLS BACK WITH AN ETA OF 7PM FOR THIS PT TO GO TO [facility] 214
[2022-03-16 17:45] LABS: Hematocrit 30.6 % (37.0-47.0); Hemoglobin 10.1 g/dl (12.0-16.0)
== END 2022-03-16 19:45 | disposition short-term general hospital (02) ==
PROVIDERS: Nurse Practitioner Family; Emergency Provider Emergency Medicine Emergency Medical Services; PCP Internal Medicine
DX: R42 Dizziness and giddiness (principal); R06.02 Shortness of breath; R10.9 Unspecified abdominal pain; R07.89 Other chest pain; Z20.822 Contact with and (suspected) exposure to COVID-19; Z98.84 Bariatric surgery status; Z79.899 Other long term (current) drug therapy
CPT/HCPCS: 36415; 71045; 71275; 74177; 80053; 85014; 85018; 85025; 85379; 87635; 93005; 96361; 96374; 99285; J2405; Q9967

== ENCOUNTER 2024-01-16 11:21 | Outpatient (REF) | payer BC, SELFPAY ==
--- NOTE | ~2024-01-16 | XR_ITS ---
EXAMINATION: XR CHEST CLINICAL INFORMATION: Cough. COMPARISON: March 16, 2022. TECHNIQUE: 2 views of the chest were obtained. FINDINGS: No significant abnormality is noted involving the heart, lungs, mediastinum, bony thorax or soft tissues. Upper anterior abdominal wall surgical mesh. Status post cholecystectomy. XR/XR chest 2V IMPRESSION: No acute finding. Electronically signed by: Andriy Chen MD 01/16/2024 02:25 PM EDT
== END 2024-01-16 11:22 | disposition home or self-care (01) ==
LOC: HO.XRAY 11:21
PROVIDERS: PCP Internal Medicine; Visit Provider Physician Assistant Surgical
DX: R05.9 Cough, unspecified (principal)
CPT/HCPCS: 71046